=== PATIENT | female | born 1955 | race Caucasian/White ===

== ENCOUNTER → 2017-12-14 | Outpatient (CLI) | payer MEDICARE | END | disposition home or self-care (01) | LOC: KCIC US 09:44 | DX: D69.6 Thrombocytopenia, unspecified (principal); R16.0 Hepatomegaly, not elsewhere classified; R79.89 Other specified abnormal findings of blood chemistry | CPT/HCPCS: 76700 ==

== ENCOUNTER → 2018-04-29 | Outpatient (CLI) | payer MEDICARE | END | disposition home or self-care (01) | LOC: KCIC MAMMO 16:55 | DX: Z12.31 Encounter for screening mammogram for malignant neoplasm of breast (principal) | CPT/HCPCS: 77067 ==

== ENCOUNTER → 2019-04-14 | Outpatient (CLI) | payer MEDICARE ==
--- NOTE | 2019-04-14 09:21 | RAD ---
CLINICAL HISTORY: Left upper quadrant pain, splenomegaly COMPARISON: None available. TECHNIQUE: Limited ultrasound examination of the left upper quadrant of the abdomen was performed FINDINGS/ IMPRESSION: 1. The spleen measures 17.3 x 6.4 x 7.5 cm in length, enlarged. 2. No focal splenic lesion is identified. 3. Visualized splenic artery and vein are patent with normal waveforms. Electronically signed by: Fransico Douglass MD (04/14/2019 9:18 AM) [facility]
== END | disposition home or self-care (01) ==
LOC: US 07:16
PROVIDERS: ATTEND Internal Medicine Hematology & Oncology
DX: D72.819 Decreased white blood cell count, unspecified (principal); D69.6 Thrombocytopenia, unspecified; R16.1 Splenomegaly, not elsewhere classified; R10.12 Left upper quadrant pain
CPT/HCPCS: 93976

== ENCOUNTER 2019-06-06 06:44 | Outpatient (CLI) | payer MEDICARE ==
[2019-06-06] VITALS (13 sets, daily range): BP systolic 97–134; BP diastolic 52–84
[~2019-06-06] VITALS: Ht 167.6 cm; Wt 88.5 kg
[2019-06-06] MEDS ORDERED: LIDOCAINE WITH 8.4% SOD BICARB 3 ML DISP.SYRIN. ONE (07:44)
[2019-06-06 07:52] LABS: BASO % 1 % (0-3); EOS # 0.1 x10^3/uL (0.0-0.7); EOS % 1 % (0-3); HEMATOCRIT 36.5 % (36.0-47.0); HEMOGLOBIN 12.6 g/dL (12.0-15.5); LYMPH # 1.1 x10^3/uL (1.0-4.8); LYMPH % 27 % (24-48); MEAN CORPUSCULAR HEMOGLOBIN 32 pg (25-35); MEAN CORPUSCULAR HGB CONC 34 g/dL (31-37); MEAN CORPUSCULAR VOLUME 94 fL (79-100); MONO # 0.4 x10^3/uL (0.0-1.1); MONO % 11 % (0-9); NEUT # 2.5 x10^3/uL (1.8-7.7); NEUT % 61 % (31-73); PLATELET COUNT 67 x10^3/uL (140-400); RED BLOOD COUNT 3.89 x10^6/uL (3.50-5.40); RED CELL DISTRIBUTION WIDTH 14.6 % (11.5-14.5); WHITE BLOOD COUNT 4.1 x10^3/uL (4.0-11.0)
[2019-06-06 07:59] LABS: PROTHROMBIN TIME PATIENT 18.8 SEC (11.7-14.0)
[2019-06-06] MEDS ORDERED: MIDAZOLAM HCL/PF 2 MG/2 ML VIAL. ONE (08:36)
[2019-06-06] MEDS ORDERED: fentaNYL PF VIAL 100 MCG/2 ML VIAL ONE (08:36)
[2019-06-06] MEDS ORDERED: MIDAZOLAM HCL/PF 2 MG/2 ML VIAL. IV ONE (09:00)
[2019-06-06] MEDS ORDERED: LIDOCAINE WITH 8.4% SOD BICARB 3 ML DISP.SYRIN. IJ ONE (09:00)
[2019-06-06] MEDS ORDERED: fentaNYL PF VIAL 100 MCG/2 ML VIAL IV ONE (09:00)
[2019-06-06] MEDS ORDERED: LISI2.5T PO (10:23)
[2019-06-06] MEDS ORDERED: LINA1TAB5 PO (10:23)
[2019-06-06] MEDS ORDERED: LAMO200T3 PO (10:23)
[2019-06-06] MEDS ORDERED: ATOR40TA59 PO (10:23)
[2019-06-06] MEDS ORDERED: VENL75CA PO (10:23)
[2019-06-06] MEDS ORDERED: EZET10TA20 PO (10:23)
[2019-06-06] MEDS ORDERED: VENL150C PO (10:23)
--- NOTE | 2019-06-06 11:32 | NUR ---
Discharge Note: SEA ANGELO Discharge instructions and discharge home medications reviewed with Patient and a copy given. All questions have been answered and understanding verbalized. The following instructions and handouts were given: Moderate Sedation; Post Biopsy Discontinued lines and drains: Peripheral IV intact. Patient discharged to Home or Self Care with Friend via Wheelchair
--- NOTE | 2019-06-06 15:44 | RAD ---
CT-guided bone marrow biopsy. 06/06/2019 1:37 PM Indication: THROMBOCYTOPENIA Discussion: The risks and benefits of the procedure, including but not limited to, bleeding and infection were discussed patient. Informed consent was obtained. The patient was brought to the CT scanner and placed in the prone position. A timeout procedure was performed. Painting Supervisor CT imaging of the pelvis demonstrated left ilium amenable to bone marrow biopsy. The overlying soft tissues were prepped and draped using maximum sterile barrier technique. 1% lidocaine without epinephrine was administered for local anesthesia. Under intermittent CT guidance, an OncControl needle was advanced into the bone marrow of the left iliac crest. 2 Aspirates and 1 core biopsy samples were obtained. Samples were delivered to pathology was present at the time of procedure. The needle was removed and manual pressure held to achieve hemostasis. No immediate complications were identified. The procedure was performed under conscious sedation including continuous cardiopulmonary monitoring via dedicated sedation nurse. Sedation time: 20 minutes Impression: Successful CT-guided bone marrow biopsy of the left iliac crest . PQRS Compliance Statement: One or more of the following individualized dose reduction techniques were utilized for this examination: 1. Automated exposure control 2. Adjustment of the mA and/or kV according to patient size 3. Use of iterative reconstruction technique
--- NOTE | 2019-06-11 16:06 | PATHOLOGY ---
[facility] Accession Number: [id number] . 01 Material submitted: . PART A: bone - BONE MARROW BIOPSY PART B: bone - BONE MARROW CLOT PART C: bone - BONE MARROW ASPIRATE SLIDES PART D: bone - PERIPHERAL BLOOD SMEAR PART E: bone - BONE MARROW FLOW . 01 Clinical history: . 64-year-old woman with thrombocytopenia. . 02 Diagnosis: Bone marrow aspirate, biopsy, cell clot and peripheral blood: - Peripheral blood with moderate thrombocytopenia. - Normocellular to focally mildly hypercellular bone marrow with trilineage hematopoiesis, erythroid hyperplasia/mild myeloid hypoplasia, mild dyspoiesis and no evidence of lymphoma or acute leukemia. (See comment). - No stainable iron. . (CLW:bob; 06/11/2019) [facility] [place] 06/11/2019 1305 Local . 02 Comment: Overall the bone marrow is normocellular to focally mildly hypercellular for the patient's age with trilineage hematopoiesis, erythroid hyperplasia/mild myeloid hypoplasia, mild dyspoiesis and no evidence of lymphoma or acute leukemia. The dyspoiesis is mild and while it could possibly represent a low-grade myelodysplastic syndrome, it does not meet the morphologic criteria for myelodysplasia. Of note, no stainable iron is identified. The bone marrow has an overall reactive appearance. Correlation with the clinical history, additional laboratory data and cytogenetics is recommended. (CLW:bob; 06/11/2019) . 02 Electronically signed: . Andreea Nettles MD, Pathologist NPI- [id number] . 01 Gross description: . A. Received in formalin labeled "Annel Marroquin, bone marrow BX," are 2 needle cores of starr bone measuring 0.9 and 1.0 cm in length and 0.2 cm each in diameter. The specimen is submitted entirely in cassette A1, following decalcification. . B. Received in formalin labeled "Annel Marroquin, BM-clot-ASP," is an aggregate of dark starr blood clot measuring 1.0 x 0.6 x 0.1 cm. The specimen is filtered and entirely submitted in cassette B1. (TSD; 06/06/2019) TOB/TOB 06/06/2019 1803 Local . 02 Microscopic: . CBC Data (06/06/19): WBC 4,100 /uL, RBC 3.89, hemoglobin 12.6 g/dL, hematocrit 36.5%, MCV 94 fL, MCH 32 pg, MCHC 34 g/dL, RDW 14.6%, and platelet count 67,000 /uL. White blood cell differential: segs 61%, lymphs 27%, monos 11%, eos 1%, and basos 1%. . Peripheral Blood Smear: Cytomorphological examination of the Rodarte's stained peripheral blood smear confirms the provided data. Red blood cells are normocytic and are without significant anisopoikilocytosis. White blood cells are predominantly segmented neutrophils and are without significant dyspoiesis or significant left shift. Lymphocytes are predominantly small, round, and mature appearing with condensed chromatin and scant cytoplasm with admixed large granular lymphocytes. Monocytes are mature. Platelets are moderately decreased in number and mainly normal in morphology with rare larger platelets noted. . Aspirate Smears: Cytomorphological examination of the Rodarte's stained aspirate smears shows spicules present. The overall cellularity is approximately 40-50%. The myeloid to erythroid ratio is 1:1. Full myeloid maturation is identified and is without significant dyspoiesis. Erythroid maturation is mildly dyserythropoietic with irregular nuclear contours, mitotic figures, basophilic stippling and slightly left shifted maturation. In a 500 cell differential, there are 2% blasts (no Josiah rods are seen), 46% more differentiated myeloids, 42% erythroid precursors, 9% lymphocytes and 1% plasma cells. Megakaryocytes are proportional in number and both normal and abnormal in morphology with variable sizes in nuclear abnormalities. No lymphoid aggregates or markedly atypical lymphoid cells are seen. Plasma cells are without atypia. Iron stain of the aspirate smear shows 0/4+ iron positivity with rare spicules present. No ringed sideroblasts are identified. . Core Biopsy and Cell Clot: The decalcified bone marrow core biopsy is adequate. The bone marrow is normocellular to focally mildly hypercellular with an overall cellularity of approximately 40-50%. The myeloid to erythroid ratio is 1:1. Myeloid maturation is without significant dyspoiesis. Erythroid maturation is mildly dyserythropoietic. Megakaryocytes are normal in number and both normal and abnormal in morphology. No lymphoid aggregates or markedly atypical lymphoid cells are seen. Bony trabeculae and blood vessels are unremarkable. The cell clot has spicules present that are similar in cellularity and differential morphology as previously described. . Properly controlled special stains are performed. . Block A1 Iron: 0/4+ iron positivity; Reticulin: No significant reticulin fibrosis. . Block B1 Iron: 0/4+ iron positivity with spicules present. . Flow Cytometry: Flow cytometric immunophenotypic analysis was performed at [facility]. The diagnosis is "no diagnostic immunophenotypic abnormalities detected." There are 10.9% lymphocytes. Of the lymphocytes, there are 70% T-cells with a CD4/CD8 ratio of 1.4 and no aberrant T-cell antigen expression and 21% polyclonal B-cells (kappa lambda ratio of 1.8). There are 2.1% CD34 positive cells (blasts) and 2.9% precursor B-cells. Myeloid elements show a mildly left shifted maturation pattern without dysmaturation. Flow cytometry detects a mildly left shifted myeloid maturation pattern, without an increase in CD34 positive blasts. Please see separate flow cytometry report from [facility] ([id number]). . Cytogenetics: Cytogenetic chromosomal analysis is pending at [facility] ([id number]). . (CLW:bob; 06/11/2019) . 02 Pathologist provided ICD-10: D69.6, D75.89 . 02 CPT . 925525, 396283, 008823, 094974, 761357, 143916, 971855, 983205, 167068 Specimen Comment: A courtesy copy of this report has been sent to Specimen Comment: [phone], , . Specimen Comment: Report sent to ,DR BERUMEN / DR GREGORY Performed at: [address] [place] [address] [address], [place] [id number] MD Adam Cartagena MD Phone: [phone] Performed at: [address] [id number] MD Ac Benavidez MD Phone: [phone]
== END 2019-06-06 11:35 ==
LOC: INTRAD 06:44
PROVIDERS: ATTEND Internal Medicine Hematology & Oncology
DX: E78.00 Pure hypercholesterolemia, unspecified (principal); E11.9 Type 2 diabetes mellitus without complications; F32.9 Major depressive disorder, single episode, unspecified; F41.9 Anxiety disorder, unspecified; Z90.710 Acquired absence of both cervix and uterus; Z90.89 Acquired absence of other organs; Z98.890 Other specified postprocedural states
CPT/HCPCS: 36415; 38222; 77012; 85025; 85610; 85730; 88184; 88185; 88237; J2250; J3010; 99152

== ENCOUNTER → 2021-07-06 | Outpatient (CLI) | payer MEDICARE ==
[2020-06-29 15:00] VITALS: BP 125/52
[~2021-07-06] MED LIST: ARIP2TAB3 PO; ATOR40TA59 PO; EZET10TA20 PO; FAMO20TA5 PO; LAMO200T3 PO; LINA1TAB5 PO; LINA5TAB PO; LISI2.5T12 PO; METF500T PO; TRAM50TA PO; VENL150C PO; VENL75CA PO
--- NOTE | 2021-07-06 10:45 | RAD ---
EXAM: CT HEAD WITHOUT CONTRAST. HISTORY: Tremor, hallucinations. TECHNIQUE: Computed tomography of the head was performed without intravenous contrast. One or more of the following individualized dose reduction techniques were utilized for this examination: 1. Automated exposure control. 2. Adjustment of the mA and/or kV according to patient size. 3. Use of iterative reconstruction technique. COMPARISON: None. FINDINGS: There is no intracranial hemorrhage. Ackerman-white differentiation is preserved. The ventricle s are normal in size and position for patient age. The visualized paranasal sinuses appear clear. The orbits are unremarkable. The temporal bones are un remarkable. The calvarium reveals no suspicious lesions. There are atherosclerotic calcifications of the internal carotid arteries. IMPRESSION: 1. No acute intracranial findings. Electronically signed by: Ana Iqbal MD (07/06/2021 10:42 AM) [id number]
== END ==
LOC: CT 10:16
PROVIDERS: ATTEND Nurse Practitioner Family
DX: G25.0 Essential tremor (principal); R44.3 Hallucinations, unspecified; I65.23 Occlusion and stenosis of bilateral carotid arteries
CPT/HCPCS: 70450